=== PATIENT | male | born 1975 | race Two or more races ===

== ENCOUNTER 2024-06-05 01:57 | Emergency (ER) | payer BC, OTHER ==
[~2024-06-05] VITALS: Ht 167.6 cm; Wt 78.2 kg
[2024-06-05 02:30] VITALS: BP 144/89; PULSE 82; RESP 18; TEMP 98; O2SAT 97
--- NOTE | 2024-06-05 03:00 | ED.PDOC ---
GI ASSESSMENT HPI Comments PATIENT C/O RECTAL PAIN 11/23 AFTER TAKING A SHOWER LAST NIGHT. PATIENT DENIES ABDOMINAL PAIN, DENIES BLEEDING. STATES HE HAS A HISTORY OF HEMORRHOIDS. DENIES CONSTIPATION OR STRAINING WITH BATHROOM USE. Chief Complaint: Rectal Pain Time Seen by MD: 02:06 Reviewed Notes: Nurses Notes, Medications, Allergies Allergies: Coded Allergies: NO KNOWN ALLERGIES (Unverified , 06/05/24) Information Source: Patient Mode of Arrival: Ambulatory Past Medical History PAST MEDICAL HISTORY: Denies Surgical History: Denies all surgeries Family History Family History: Unknown Social History Smoker: Non-Smoker Alcohol: Denies ETOH Use Drugs: Denies Drug Use Constitutional: denies: chills, diaphoresis, fatigue, fever, malaise, sweats, weakness, others EENTM: denies: blurred vision, double vision, ear bleeding, ear discharge, ear drainage, ear pain, ear ringing, eye pain, eye redness, hearing loss, mouth pain, mouth swelling, nasal discharge, nose bleeding, nose congestion, nose pain, photophobia, tearing, throat pain, throat swelling, voice changes, others Respiratory: denies: cough, hemoptysis, orthopnea, SOB at rest, shortness of breath, SOB with excertion, stridor, wheezing, others Cardiovascular: denies: chest pain, dizzy spells, diaphoresis, Dyspnea on exertion, edema, irregular heart beat, left arm pain, lightheadedness, palpitations, PND, syncope, others Gastrointestinal: reports: rectal pain; denies: abdomen distended, abdominal pain, blood streaked bowels, constipated, diarrhea, dysphagia, difficulty swallowing, hematemesis, melena, nausea, poor appetite, poor fluid intake, rectal bleeding, vomiting, others Genitourinary: denies: burning, dysuria, flank pain, frequency, hematuria, incontinence, penile discharge, penile sore, pain, testicle pain, testicle swelling, urgency, others Neurological: denies: dizziness, fainting, headache, left sided numbness, left sided weakness, numbness, paresthesia, pre-existing deficit, right sided numbness, right sided weakness, seizure, speech problems, tingling, tremors, weakness, others Musculoskeletal: denies: back pain, gout, joint pain, joint swelling, muscle pain, muscle stiffness, neck pain, others Integumetry: denies: bruises, change in color, change in hair/nails, dryness, laceration, lesions, lumps, rash, wounds, others Allergic/Immunocompromised: denies: Difficulty Healing, Frequent Infections, Hives, Itching, others Hematologic/Lymphatic: denies: anemia, blood clots, easy bleeding, easy bruising, swollen glands, others Endocrine: denies: excessive hunger, excessive sweating, excessive thirst, excessive urination, flushing, intolerance to cold, intolerance to heat, unexplained weight gain, unexplained weight loss, others Psychiatric: denies: anxiety, bipolar disorder, depression, hopeless, panic disorder, schizophrenia, sleepless, suicidal, others Physical Exam General Appearance: No Apparent Distress, Normal HEENT: Pharynx Normal Neck: Full Range of Motion, Non-Tender Respiratory: Lungs Clear, No Respiratory Distress, Normal Breath Sounds Cardiovascular: No Edema, No Murmur, Normal Peripheral Pulses, Regular Rate/Rhythm Breast Exam: Deferred Gastrointestinal: No Organomegaly, Non Tender, No Pulsatile Mass, Normal Bowel Sounds, Soft Genitalia: Deferred Pelvic: Deferred Rectal: Hemorrhoids Extremities: Normal capillary refill, Normal inspection, Normal range of motion, Non-tender, No pedal edema Musculoskeletal : Apperance: Normal Neurologic: Alert, industrial relations analyst II-XII nml as Tested, No Motor Deficits, Normal Affect, Normal Mood, No Sensory Deficits Cerebellar Function: Normal Reflexes: Normal Skin: Dry, Normal Color, Warm Lymphatic: No Adenopathy Was a procedure done? Was a procedure done?: No GI differential Dx Differential Diagnosis: Constipation, Mass X-Ray, Labs, Meds, VS Vital Signs Date Time Temp Pulse Resp B/P (MAP) Pulse Ox O2 Delivery O2 Flow Rate FiO2 06/05/24 02:30 Room Air 06/05/24 02:30 98.0 82 18 144/89 (107) 97 98.0 06/05/24 02:30 98.0 82 18 144/89 (107) 97 98.0 Current Medications Medications (Trade) Dose Ordered Sig/Zeynep Route Start Time Stop Time Status Last Admin Acetaminophen/ Hydrocodone Bitart ([place] 5/325MG Tab) 2 tab ONCE ONCE PO 06/05/24 03:15 06/05/24 03:16 DC 06/05/24 03:14 Ibuprofen (Motrin Tablet) 600 mg ONCE ONCE PO 06/05/24 03:15 06/05/24 03:16 DC 06/05/24 03:14 X-Ray, Labs, Meds, VS Comment FOLLOW UP WITH YOUR GI DOCTOR TOMORROW DISCUSSED. USE YOUR HYDROCORTISONE SUPPOSITORIES DIRECTED. ER FOR INCREASING PAIN OR UNCONTROLLED BLEEDING. Time of 1ST Reevaluation: 02:58 Reevaluation 1ST: Unchanged Time of 2ND Reevaluation: 03:10 Reevaluation 2ND: Improved Patient Education/Counseling: Diagnosis, Treatment, Prognosis, Need For Follow Up Family Education/Counseling: Diagnosis, Treatment, Prognosis, Need For Follow Up Departure 1 Departure Time of Disposition: 03:10 Impression: Primary Impression: Internal hemorrhoid Disposition: 01 HOME / SELF CARE / HOMELESS Condition: Stable Additional Instructions: FOLLOW UP WITH YOUR GI DOCTOR TOMORROW DISCUSSED. USE YOUR HYDROCORTISONE SUPPOSITORIES DIRECTED. ER FOR INCREASING PAIN OR UNCONTROLLED BLEEDING. Discharged With: Friend Critical Care Note Critical Care Time?: No Stability Stability form required: ALISON Maradiaga Jun 05, 2024 03:00
[2024-06-05] MEDS: HYDROcodone-ACET 5/325MG TAB PO ONE (03:14)
[2024-06-05] MEDS: IBUPROFEN 600 MG TAB PO ONE (03:14)
== END 2024-06-05 03:34 | disposition home or self-care (01) ==
LOC: ER 01:57
DX: K64.8 Other hemorrhoids (principal)